=== PATIENT | female | born 1980 | race Caucasian/White ===

== ENCOUNTER → 2016-12-16 | Outpatient (CLI) | payer OTHER ==
[2016-12-16 17:29] LABS: HEMATOCRIT 41.7 % (36.0-47.0); HEMOGLOBIN 13.5 g/dL (12.0-15.5); RED BLOOD COUNT 4.74 x10^6/uL (3.50-5.40); RED CELL DISTRIBUTION WIDTH 13.6 % (11.5-14.5); WHITE BLOOD COUNT 13.5 x10^3/uL (4.0-11.0)
[2016-12-16 17:45] LABS: ALBUMIN 3.7 g/dL (3.4-5.0); ALBUMIN/GLOBULIN RATIO 0.9 (1.0-1.7); CALCIUM 9.8 mg/dL (8.5-10.1); CREATININE 0.7 mg/dL (0.6-1.0); GFR 93.6; POTASSIUM 4.4 mmol/L (3.5-5.1); TOTAL BILIRUBIN 0.3 mg/dL (0.2-1.0); TOTAL PROTEIN 7.7 g/dL (6.4-8.2)
[2016-12-17 10:29] LABS: HEP A IGM ABDY Negative (Negative)
== END | disposition home or self-care (01) ==
LOC: LAB 16:39
PROVIDERS: ATTEND Family Medicine
DX: E11.9 Type 2 diabetes mellitus without complications (principal); R03.0 Elevated blood-pressure reading, without diagnosis of hypertension; R74.0 Nonspecific elevation of levels of transaminase and lactic acid dehydrogenase [LDH]
CPT/HCPCS: 36415; 80053; 80074; 82043; 83036; 85027

== ENCOUNTER → 2016-12-17 | Outpatient (CLI) | payer OTHER ==
--- NOTE | 2016-12-17 16:58 | RAD ---
Left foot, 3 views, 12/17/2016: History: Toe injury No fracture or dislocation is identified. There is minimal degenerative change at the first MTP joint. There is a small inferior calcaneal spur. There is mild subcutaneous edema about the foot. IMPRESSION: No acute bony abnormality is detected.
== END | disposition home or self-care (01) ==
LOC: RAD 16:27
PROVIDERS: ATTEND Family Medicine
DX: S99.922A Unspecified injury of left foot, initial encounter (principal); W19.XXXA Unspecified fall, initial encounter; Y93.89 Activity, other specified; Y92.89 Other specified places as the place of occurrence of the external cause; Y99.8 Other external cause status
CPT/HCPCS: 73630

== ENCOUNTER → 2017-04-12 | Outpatient (CLI) | payer OTHER ==
[2017-04-12 15:46] LABS: BASO # 0.1 x10^3/uL (0.0-0.2); BASO % 1 % (0-3); EOS % 3 % (0-3); HEMATOCRIT 41.9 % (36.0-47.0); HEMOGLOBIN 13.9 g/dL (12.0-15.5); LYMPH # 3.1 x10^3/uL (1.0-4.8); LYMPH % 24 % (24-48); MEAN CORPUSCULAR HEMOGLOBIN 29 pg (25-35); MEAN CORPUSCULAR HGB CONC 33 g/dL (31-37); MEAN CORPUSCULAR VOLUME 87 fL (79-100); MONO % 6 % (0-9); NEUT % 66 % (31-73); PLATELET COUNT 183 x10^3/uL (140-400); RED BLOOD COUNT 4.82 x10^6/uL (3.50-5.40); RED CELL DISTRIBUTION WIDTH 14.2 % (11.5-14.5); WHITE BLOOD COUNT 12.7 x10^3/uL (4.0-11.0)
[2017-04-12 16:15] LABS: ALBUMIN 3.6 g/dL (3.4-5.0); ALBUMIN/GLOBULIN RATIO 0.9 (1.0-1.7); CALCIUM 8.6 mg/dL (8.5-10.1); CREATININE 0.8 mg/dL (0.6-1.0); GFR 80.3; POTASSIUM 4.2 mmol/L (3.5-5.1); TOTAL BILIRUBIN 0.3 mg/dL (0.2-1.0); TOTAL PROTEIN 7.6 g/dL (6.4-8.2)
== END | disposition home or self-care (01) ==
LOC: LAB 15:18
PROVIDERS: ATTEND Psychiatry & Neurology Neurology
DX: G93.2 Benign intracranial hypertension (principal)
CPT/HCPCS: 36415; 80053; 84443; 85027; 85651

== ENCOUNTER → 2017-04-19 | Outpatient (CLI) | payer OTHER ==
[~2017-04-19] MED LIST: GADOBUTROL 10 MMOL/10 ML VIAL IV ONE
--- NOTE | 2017-04-19 16:18 | RAD ---
INDICATION: Chronic migraine headaches with aura. Lupus. TECHNIQUE: Sagittal T1, axial T1, axial T2, axial FLAIR, axial T2 gradient, diffusion imaging with ADC map, postcontrast axial, and postcontrast coronal sequences are provided. 10 mL of intravenous Gadavist was administered without complication. No comparison is available. FINDINGS: The ventricles are normal in size and configuration. There is no acute intracranial hemorrhage or extra-axial fluid collection. There is no mass effect or midline shift. There is no restricted diffusion to suggest an acute infarct. Sagittal midline structures are unremarkable. Pituitary and suprasellar region are unremarkable. Intracranial flow voids are preserved. Left maxillary sinus retention cysts are noted. There is no pathologic enhancement. IMPRESSION: No acute intracranial findings. Electronically signed by: Eddie Conway MD (04/19/2017 4:14 PM) [id number]
== END | disposition home or self-care (01) ==
LOC: MRI 14:17
PROVIDERS: ATTEND Psychiatry & Neurology Neurology
DX: G43.119 Migraine with aura, intractable, without status migrainosus (principal); G93.2 Benign intracranial hypertension
CPT/HCPCS: 70553; A9585

== ENCOUNTER → 2017-12-20 | Outpatient (CLI) | payer OTHER ==
[2017-12-20 11:11] LABS: ADD MAN DIFF? NO
[2017-12-20 11:19] LABS: BASO # 0.1 x10^3/uL (0.0-0.2); BASO % 1 % (0-3); EOS # 0.3 x10^3/uL (0.0-0.7); EOS % 3 % (0-3); HEMATOCRIT 42.9 % (36.0-47.0); HEMOGLOBIN 14.1 g/dL (12.0-15.5); LYMPH # 2.8 x10^3/uL (1.0-4.8); LYMPH % 25 % (24-48); MEAN CORPUSCULAR HEMOGLOBIN 29 pg (25-35); MEAN CORPUSCULAR HGB CONC 33 g/dL (31-37); MEAN CORPUSCULAR VOLUME 87 fL (79-100); MONO # 0.7 x10^3/uL (0.0-1.1); MONO % 6 % (0-9); NEUT # 7.2 x10^3uL (1.8-7.7); NEUT % 65 % (31-73); PLATELET COUNT 194 x10^3/uL (140-400); RED BLOOD COUNT 4.92 x10^6/uL (3.50-5.40); RED CELL DISTRIBUTION WIDTH 13.5 % (11.5-14.5)
[2017-12-20 11:41] LABS: ANION GAP 7 (6-14); BLOOD UREA NITROGEN 13 mg/dL (7-20); CALCIUM 8.9 mg/dL (8.5-10.1); CARBON DIOXIDE 28 mmol/L (21-32); CHLORIDE 105 mmol/L (98-107); CHOLESTEROL 208 mg/dL (0-200); CREATININE 0.7 mg/dL (0.6-1.0); GFR 93.2; GLUCOSE 153 mg/dL (70-99); HDLC 36 mg/dL (40-60); LDLC 153 mg/dL (0-100); NON-HDL CHOLESTEROL 172 mg/dL (0-129); POTASSIUM 4.8 mmol/L (3.5-5.1); SODIUM 140 mmol/L (136-145); TRIGLYCERIDES 97 mg/dL (0-150); VLDLC 19 mg/dL (0-40)
[2017-12-20 11:42] LABS: CHOLESTEROL/HDL RATIO 5.8
[2017-12-20 11:51] LABS: THYROID STIM HORMONE (TSH) 2.798 uIU/mL (0.358-3.74)
== END | disposition home or self-care (01) ==
LOC: LAB 11:00
DX: E11.9 Type 2 diabetes mellitus without complications (principal); R03.0 Elevated blood-pressure reading, without diagnosis of hypertension; E66.9 Obesity, unspecified
CPT/HCPCS: 36415; 80048; 80061; 83036; 84443; 85025

== ENCOUNTER → 2018-10-19 | Outpatient (CLI) | payer OTHER ==
[2018-10-19 10:51] LABS: BASO # 0.1 x10^3/uL (0.0-0.2); BASO % 1 % (0-3); EOS # 0.3 x10^3/uL (0.0-0.7); EOS % 3 % (0-3); HEMATOCRIT 44.8 % (36.0-47.0); HEMOGLOBIN 14.7 g/dL (12.0-15.5); LYMPH # 2.8 x10^3/uL (1.0-4.8); LYMPH % 25 % (24-48); MEAN CORPUSCULAR HEMOGLOBIN 29 pg (25-35); MEAN CORPUSCULAR HGB CONC 33 g/dL (31-37); MEAN CORPUSCULAR VOLUME 87 fL (79-100); MONO # 0.6 x10^3/uL (0.0-1.1); MONO % 5 % (0-9); NEUT # 7.5 x10^3uL (1.8-7.7); NEUT % 66 % (31-73); PLATELET COUNT 211 x10^3/uL (140-400); RED BLOOD COUNT 5.15 x10^6/uL (3.50-5.40); RED CELL DISTRIBUTION WIDTH 13.9 % (11.5-14.5); WHITE BLOOD COUNT 11.3 x10^3/uL (4.0-11.0)
[2018-10-19 11:09] LABS: CALCIUM 9.4 mg/dL (8.5-10.1); CHOLESTEROL/HDL RATIO 7.2; CREATININE 0.7 mg/dL (0.6-1.0); GFR 92.7; POTASSIUM 3.9 mmol/L (3.5-5.1); TOTAL BILIRUBIN 0.3 mg/dL (0.2-1.0); TOTAL PROTEIN 8.2 g/dL (6.4-8.2)
[2018-10-19 11:19] LABS: FREE T4 1.04 ng/dL (0.76-1.46); THYROID STIM HORMONE (TSH) 5.028 uIU/mL (0.358-3.74)
[2018-10-19 22:11] LABS: HEMOGLOBIN A1C 6.9 % (4.8-5.6)
== END | disposition home or self-care (01) ==
LOC: LAB 09:14
PROVIDERS: ATTEND Psychiatry & Neurology Neurology
DX: G43.119 Migraine with aura, intractable, without status migrainosus (principal); H02.409 Unspecified ptosis of unspecified eyelid; H53.8 Other visual disturbances; E11.9 Type 2 diabetes mellitus without complications; E78.2 Mixed hyperlipidemia; R74.0 Nonspecific elevation of levels of transaminase and lactic acid dehydrogenase [LDH]
CPT/HCPCS: 80053; 80061; 82043; 82550; 82607; 83036; 84439; 84443; 85025; 85651

== ENCOUNTER → 2018-11-08 | Outpatient (CLI) | payer OTHER | END | disposition home or self-care (01) | LOC: SPEC 11:33 | PROVIDERS: ATTEND Family Medicine | DX: Z01.419 Encounter for gynecological examination (general) (routine) without abnormal findings (principal) | CPT/HCPCS: 88175 ==

== ENCOUNTER → 2019-07-11 | Outpatient (CLI) | payer OTHER ==
--- NOTE | 2019-07-11 17:02 | RAD ---
MR of the right knee HISTORY: Right knee pain for one month. TECHNIQUE: Routine multiplanar sequences are obtained. FINDINGS: No evidence of medial meniscal tear. No evidence of lateral meniscal tear. Anterior and posterior cruciate ligaments are intact. Medial collateral ligament is intact. Iliotibial band unremarkable. Fibular collateral ligament, biceps femoris tendon and popliteus tendon are intact. Extensor mechanism is intact. Moderate joint effusion. No significant Myers's cyst. Moderate to severe chondromalacia of the patella. Chondral thinning at the medial femoral condyle weightbearing aspect. No acute fracture. No aggressive bone destruction. No significant Myers's cyst. There is mild lateral patellar tilt and subluxation. IMPRESSION: 1. Degenerative joint disease, with chondromalacia at the patella and medial femoral condyle. 2. Moderate joint effusion. Electronically signed by: Imtiaz Pradhan MD (07/11/2019 4:59 PM) [id number]
== END | disposition home or self-care (01) ==
LOC: MRI 15:30
PROVIDERS: ATTEND Orthopaedic Surgery Sports Medicine
DX: M17.11 Unilateral primary osteoarthritis, right knee (principal); M25.461 Effusion, right knee; M22.41 Chondromalacia patellae, right knee
CPT/HCPCS: 73721

== ENCOUNTER → 2019-08-04 | Outpatient (CLI) | payer OTHER ==
--- NOTE | 2019-08-04 15:36 | EKG ---
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
== END | disposition home or self-care (01) ==
LOC: EKG 15:01
PROVIDERS: ATTEND Psychiatry & Neurology Neurology
DX: G43.909 Migraine, unspecified, not intractable, without status migrainosus (principal); I45.19 Other right bundle-branch block; R94.31 Abnormal electrocardiogram [ECG] [EKG]
CPT/HCPCS: 93005

== ENCOUNTER 2019-12-19 19:10 | Emergency (ER) | payer OTHER ==
[~2019-12-19] VITALS: Ht 170.2 cm; Wt 125.0 kg
[2019-12-19 19:15] VITALS: BP 176/90
[2019-12-19] MEDS ORDERED: NAPROXEN 500 MG TABLET PO STA (19:29)
[2019-12-19] MEDS ORDERED: NEOMY/BACITR/POLYMYXIN OINT PACKET. TP ONE (19:30)
[2019-12-19] MEDS ORDERED: HYDROcodone/APAP 5/325MG 1 TAB TABLET PO ONE (19:30)
--- NOTE | 2019-12-19 19:38 | PHYS DOC ---
Past Medical History Attending Signature I have participated in the care of this patient and I have reviewed and agree with all pertinent clinical information above including history, exam, and recommendations. (SANDEEP WONG MD) Adult General Chief Complaint Chief Complaint: ANIMAL BITE HPI HPI Patient is a 39 year old female who presents to the ED today with dog bites to the left hand. Patient states the neighbors dog bit her. Patient reports the neighbor's dog is up-to-date with its shots. Patient is right-handed. (HERMELINDA POLANCO APRN) Review of Systems Review of Systems Constitutional: Denies fever or chills [] Musculoskeletal: Denies back pain or joint pain [] Integument: Reports dog bite to the left hand Neurologic: Denies headache, focal weakness or sensory changes [] All other systems were reviewed and found to be within normal limits, except as documented in this note. (HERMELINDA POLANCO APRN) Current Medications Current Medications Current Medications Medications (Trade) Dose Ordered Sig/Car Start Time Stop Time Status Last Admin Dose Admin Acetaminophen/ Hydrocodone Bitart (Lortab 5/325) 2 tab 1X ONCE 12/19/19 19:30 12/19/19 19:42 DC 12/19/19 19:44 2 TAB Diphtheria/ Tetanus/Acell Pertussis (ADACEL TDap SYRINGE) 0.5 ml ONCE ONCE 12/19/19 19:45 12/19/19 19:48 DC 12/19/19 20:06 0.5 ML Naproxen (Naprosyn) 500 mg STK-MED ONCE 12/19/19 19:42 12/19/19 19:42 DC Neomycin/ Polymyxin/ Bacitracin (Triple Antibiotic Ointment) 1 pkt 1X ONCE 12/19/19 19:30 12/19/19 19:43 DC 12/19/19 20:07 1 PKT (SANDEEP WONG MD) Allergies Allergies Allergies Coded Allergies Type Severity Reaction Last Updated Verified Iodinated Contrast Media Allergy Intermediate 04/19/17 Yes Penicillins Allergy Intermediate 04/19/17 Yes Sulfa (Sulfonamide Antibiotics) Allergy Intermediate 04/19/17 Yes bee venom protein (honey bee) Allergy Intermediate 04/19/17 Yes (SANDEEP WONG MD) Physical Exam Physical Exam Constitutional: Well developed, well nourished, no acute distress, non-toxic appearance. [] Skin: Left dorsal hand mid fifth metacarpal with a tiny puncture wound consistent of a dog bite, there is another puncture wound noted on the left thumb metacarpal. Full range of motion to the left hand and fingers. Adequate sensation to the left hand. +2 left radial pulse. Cap refill less than 2 seconds to left fingers. Back: No tenderness, no CVA tenderness. [] Extremities: No tenderness, no cyanosis, no clubbing, ROM intact, no edema. [] Neurologic: Alert and oriented X 3, normal motor function, normal sensory function, no focal deficits noted. [] Psychologic: Affect normal, judgement normal, mood normal. [] (HERMELINDA POLANCO APRN) Current Patient Data Vital Signs Vital Signs Date Time Temp Pulse Resp B/P (MAP) Pulse Ox O2 Delivery O2 Flow Rate FiO2 12/19/19 19:44 22 98 Room Air 12/19/19 19:15 97.6 95 176/90 (118) 97.6 (SANDEEP WONG MD) EKG EKG [] (HERMELINDA POLANCO APRN) Radiology/Procedures Radiology/Procedures []PROCEDURE: HAND LEFT 3V Three-view left hand dated 12/19/2019. No comparison available. Clinical data indication: Dog bite. Pain and wounds at fifth and first MCP joints. FINDINGS: 3 views left hand show normal bony alignment. No displaced fracture. No acute osseous or articular abnormality. No radiopaque foreign body. IMPRESSION: No acute bony abnormality. Electronically signed by: Imtiaz Linares MD (12/19/2019 7:44 PM) [id number] DICTATED and SIGNED BY: IMTIAZ LINARES MD DATE: 12/19/19 194 (HERMELINDA POLANCO APRN) Course & Med Decision Making Course & Med Decision Making Pertinent Labs and Imaging studies reviewed. (See chart for details) This is a 39-year-old female patient presenting to the ED today with dog bites to the left hand. Tetanus was updated. Left hand x-rays interpreted by radiologist are negative for any acute findings. Left hand dog bite sites were cleaned thoroughly, Neosporin applied and nonstick dressing. Patient was discharged on Cipro and clindamycin, she is allergic to Bactrim and penicillins. Follow-up with PCP in 1 to 2 weeks. Provided wound care instructions and return precautions (HERMELINDA POLANCO APRN) Dragon Disclaimer Dragon Disclaimer This electronic medical record was generated, in whole or in part, using a voice recognition dictation system. (HERMELINDA POLANCO APRN) Attending Signature I have participated in the care of this patient and I have reviewed and agree with all pertinent clinical information above including history, exam, and recommendations. (SANDEEP WONG MD) Departure Departure Impression: Primary Impression: Dog bite, hand Disposition: HOME, SELF-CARE Condition: STABLE Referrals: LALA AYALA MD (PCP) follow up in 1-2 weeks Patient Instructions: Animal Bite, [id number] Additional Instructions: You were evaluated in the emergency room for dog bites on your left hand. Your left hand x-rays are negative for any acute findings. Please clean the affected areas once or twice a day with regular soap and water. Apply Neosporin to the areas twice a day. Take the prescribed antibiotics until completed. Consider taking probiotics while on the antibiotics. Monitor the area for any worsening symptoms including increased redness, warmth, yellow drainage from the areas or fever and return to the ED if they occur. Scripts Ciprofloxacin Hcl (CIPRO) 500 Mg Tablet 1 TAB PO BID for 10 Days, #20 TAB 0 Refills Prov: HERMELINDA POLANCO APRN 12/19/19 Clindamycin Hcl (CLINDAMYCIN HCL) 300 Mg Capsule 1 CAP PO TID, #21 CAP Prov: HERMELINDA POLANCO APRN 12/19/19 Problem Qualifiers Primary Impression: Dog bite, hand Encounter type: initial encounter Laterality: left Qualified Codes: S61.452A - Open bite of left hand, initial encounter; W54.0XXA - Bitten by dog, initial encounter HERMELINDA POLANCO APRN Dec 19, 2019 19:38 SANDEEP WONG MD Dec 19, 2019 23:13
[2019-12-19] MEDS ORDERED: NAPROXEN 500 MG TABLET ONE (19:42)
[2019-12-19] MEDS ORDERED: DIPH,PERTUSS(ACELL),TET VAC/PF 0.5 ML SYRINGE. VAX IM ONE (19:45)
--- NOTE | 2019-12-19 19:46 | RAD ---
Three-view left hand dated 12/19/2019. No comparison available. Clinical data indication: Dog bite. Pain and wounds at fifth and first MCP joints. FINDINGS: 3 views left hand show normal bony alignment. No displaced fracture. No acute osseous or articular abnormality. No radiopaque foreign body. IMPRESSION: No acute bony abnormality. Electronically signed by: Imtiaz Linares MD (12/19/2019 7:44 PM) [id number]
[2019-12-19] MEDS ORDERED: CLIN300C8 PO (19:59)
[2019-12-19] MEDS ORDERED: CIPR500T94 PO (19:59)
[2019-12-19] MEDS ORDERED: HYDR-3164 PO (20:02)
== END 2019-12-19 20:10 | disposition home or self-care (01) ==
LOC: ER 19:10
DX: S61.237A Puncture wound without foreign body of left little finger without damage to nail, initial encounter (principal); S61.032A Puncture wound without foreign body of left thumb without damage to nail, initial encounter; Z88.1 Allergy status to other antibiotic agents; Z88.0 Allergy status to penicillin; Z88.2 Allergy status to sulfonamides; Z91.030 Bee allergy status; W54.0XXA Bitten by dog, initial encounter; Y93.89 Activity, other specified; Y92.89 Other specified places as the place of occurrence of the external cause; Y99.8 Other external cause status
CPT/HCPCS: 73130; 90471; 90715; 99284

== ENCOUNTER → 2020-01-04 | Outpatient (CLI) | payer OTHER ==
[2019-12-19 19:15] VITALS: BP 176/90
[~2020-01-04] MED LIST changes: +CIPR500T94 PO; +CLIN300C8 PO; -GADOBUTROL 10 MMOL/10 ML VIAL IV ONE; +HYDR-3164 PO
[2020-01-04 06:52] LABS: ALBUMIN 3.6 g/dL (3.4-5.0); CHOLESTEROL/HDL RATIO 6.9; CREATININE 0.7 mg/dL (0.6-1.0); GFR 92.2; POTASSIUM 4.3 mmol/L (3.5-5.1); TOTAL BILIRUBIN 0.3 mg/dL (0.2-1.0); TOTAL PROTEIN 7.1 g/dL (6.4-8.2)
[2020-01-04 06:53] LABS: BASO # 0.1 x10^3/uL (0.0-0.2); BASO % 1 % (0-3); EOS # 0.3 x10^3/uL (0.0-0.7); EOS % 3 % (0-3); HEMATOCRIT 43.1 % (36.0-47.0); HEMOGLOBIN 14.4 g/dL (12.0-15.5); LYMPH # 2.9 x10^3/uL (1.0-4.8); LYMPH % 26 % (24-48); MEAN CORPUSCULAR HEMOGLOBIN 29 pg (25-35); MEAN CORPUSCULAR HGB CONC 33 g/dL (31-37); MEAN CORPUSCULAR VOLUME 87 fL (79-100); MONO # 0.8 x10^3/uL (0.0-1.1); MONO % 7 % (0-9); NEUT % 64 % (31-73); PLATELET COUNT 200 x10^3/uL (140-400); RED BLOOD COUNT 4.97 x10^6/uL (3.50-5.40); RED CELL DISTRIBUTION WIDTH 13.8 % (11.5-14.5)
[2020-01-05 01:07] LABS: HEMOGLOBIN A1C 7.2 % (4.8-5.6)
== END | disposition home or self-care (01) ==
LOC: LAB 06:04
PROVIDERS: ATTEND Family Medicine
DX: E11.9 Type 2 diabetes mellitus without complications (principal); M32.9 Systemic lupus erythematosus, unspecified
CPT/HCPCS: 36415; 80053; 80061; 82306; 83036; 85025

== ENCOUNTER → 2020-06-18 | Outpatient (CLI) | payer OTHER | END | disposition home or self-care (01) | LOC: SPEC 12:12 | PROVIDERS: ATTEND Nurse Practitioner Women's Health | DX: Z01.419 Encounter for gynecological examination (general) (routine) without abnormal findings (principal) | CPT/HCPCS: 88175 ==

== ENCOUNTER → 2021-05-14 | Outpatient (CLI) | payer OTHER ==
[~2021-05-14] MED LIST changes: -CLIN300C8 PO; +CLIN300C9 PO
[2021-05-14 13:40] LABS: BASO # 0.1 x10^3/uL (0.0-0.2); BASO % 1 % (0-3); EOS # 0.3 x10^3/uL (0.0-0.7); EOS % 3 % (0-3); HEMATOCRIT 42.3 % (36.0-47.0); HEMOGLOBIN 14.5 g/dL (12.0-15.5); LYMPH % 27 % (24-48); MEAN CORPUSCULAR HEMOGLOBIN 30 pg (25-35); MEAN CORPUSCULAR HGB CONC 34 g/dL (31-37); MEAN CORPUSCULAR VOLUME 87 fL (79-100); MONO # 0.6 x10^3/uL (0.0-1.1); MONO % 6 % (0-9); NEUT % 63 % (31-73); PLATELET COUNT 195 x10^3/uL (140-400); RED BLOOD COUNT 4.88 x10^6/uL (3.50-5.40); RED CELL DISTRIBUTION WIDTH 13.7 % (11.5-14.5); WHITE BLOOD COUNT 11.1 x10^3/uL (4.0-11.0)
[2021-05-14 13:54] LABS: ALBUMIN 3.8 g/dL (3.4-5.0); CALCIUM 9.2 mg/dL (8.5-10.1); CREATININE 0.7 mg/dL (0.6-1.0); GFR 91.3; POTASSIUM 4.5 mmol/L (3.5-5.1); TOTAL BILIRUBIN 0.4 mg/dL (0.2-1.0); TOTAL PROTEIN 7.7 g/dL (6.4-8.2)
[2021-05-14 13:55] LABS: CHOLESTEROL/HDL RATIO 7.4
[2021-05-14 14:04] LABS: FREE T4 0.96 ng/dL (0.76-1.46); THYROID STIM HORMONE (TSH) 1.596 uIU/mL (0.358-3.74)
== END ==
LOC: LAB 13:11
PROVIDERS: ATTEND Physician Assistant Medical
DX: E11.9 Type 2 diabetes mellitus without complications (principal); E78.5 Hyperlipidemia, unspecified; F43.0 Acute stress reaction
CPT/HCPCS: 36415; 80053; 80061; 82043; 84439; 84443; 85025